=== PATIENT | female | born 1950 | race Caucasian/White ===

== ENCOUNTER → 2019-06-09 | Outpatient (CLI) | payer OTHER ==
[~2019-06-09] MED LIST: ASPIRIN325; MAALOX MAXIMUM355 ML PO; PEPCID AC20 M1 PO; PHENERGAN 25 MG25 MG PO; REGLAN 5 MG TAB5 M1 PO; SIMVASTATIN40 MG PO; TOPROL XL25 MG PO; ZESTRIL5 MG PO
== END ==
LOC: SJCVC 10:22
DX: I25.10 Atherosclerotic heart disease of native coronary artery without angina pectoris (principal); I10 Essential (primary) hypertension; I65.23 Occlusion and stenosis of bilateral carotid arteries; E78.5 Hyperlipidemia, unspecified; E11.9 Type 2 diabetes mellitus without complications; J44.9 Chronic obstructive pulmonary disease, unspecified; K21.9 Gastro-esophageal reflux disease without esophagitis; Z79.82 Long term (current) use of aspirin; Z79.84 Long term (current) use of oral hypoglycemic drugs; F17.210 Nicotine dependence, cigarettes, uncomplicated

== ENCOUNTER → 2019-06-24 | Outpatient (CLI) | payer OTHER ==
[~2019-06-24] MED LIST changes: +ALBUTEROL2.5 MG/31 INH; +AUGMENTIN 875-1 EACH PO; +AZELASTINE137 MCG/0. NS; +CALCIUM 500+D1 EAC2 PO; +CHANTIX1 EACH PO; +DOXYCYCLINE 10100 M2 PO; +LOMOTIL TABLET1 EACH PO; +METFORMIN HCL500 MG PO; +ONDANSETRON ODT8 MG PO; +PANTOPRAZOLE SO40 M1 PO; +PREDNISONE 20 M20 MG PO; +XARELTO20 MG PO
== END ==
LOC: SJCVC 11:51
DX: I25.10 Atherosclerotic heart disease of native coronary artery without angina pectoris (principal); Z79.899 Other long term (current) drug therapy

== ENCOUNTER 2019-07-02 14:55 | Emergency (ER) | payer OTHER ==
[~2019-07-02] VITALS: Ht 162.6 cm; Wt 103.9 kg
[~2019-07-02 14:55] MED LIST changes: -ALBUTEROL2.5 MG/31 INH; -AUGMENTIN 875-1 EACH PO; -AZELASTINE137 MCG/0. NS; -CALCIUM 500+D1 EAC2 PO; -CHANTIX1 EACH PO; -DOXYCYCLINE 10100 M2 PO; -LOMOTIL TABLET1 EACH PO; -METFORMIN HCL500 MG PO; -ONDANSETRON ODT8 MG PO; -PANTOPRAZOLE SO40 M1 PO; -PREDNISONE 20 M20 MG PO; -XARELTO20 MG PO
[2019-07-02] MEDS ORDERED: XARELTO20 MG PO (15:04)
[2019-07-02] MEDS ORDERED: AUGMENTIN 875-1 EACH PO (15:04)
[2019-07-02] MEDS ORDERED: CHANTIX1 EACH PO (15:05)
[2019-07-02] MEDS ORDERED: METFORMIN HCL500 MG PO (15:05)
[2019-07-02 15:44] LABS: ABSOLUTE NEUTROPHILS 13.6 thou/uL (1.4-8.2); BASOPHILS 0.4 % (0.0-2.0); EOSINOPHILS 0.7 % (0.0-3.0); HEMATOCRIT 44.8 % (37.0-47.0); HEMOGLOBIN 14.1 gm/dL (12.0-15.0); LYMPHOCYTES 4.1 % (24.0-44.0); MCH 25.1 pg (26.0-34.0); MCHC 31.6 g/dL (28.0-37.0); MCV 79.5 fL (80.0-100.0); MONOCYTES 3.8 % (1.0-8.0); PLATELET COUNT 302 thou/uL (150-400); RBC 5.63 mil/uL (4.20-5.00); RDW 15.1 % (10.5-14.5)
[2019-07-02] MEDS ORDERED: LOMOTIL TABLET1 EACH PO (15:59)
[2019-07-02] MEDS ORDERED: DOXYCYCLINE 10100 M2 PO (16:01)
[2019-07-02] MEDS ORDERED: CALCIUM 500+D1 EAC2 PO (16:03)
[2019-07-02] MEDS ORDERED: PANTOPRAZOLE SO40 M1 PO (16:04)
[2019-07-02 16:06] LABS: ANION GAP 9 mmol/L (7-16); BUN 24 mg/dL (7-18); CALCIUM 9.5 mg/dL (8.5-10.1); CHLORIDE 98 mmol/L (98-107); CO2 27 mmol/L (21-32); GLUCOSE 134 mg/dL (74-106); POTASSIUM 4.6 mmol/L (3.5-5.1); SODIUM 134 mmol/L (136-145)
[2019-07-02 16:09] LABS: APTT 28.8 Seconds (24.5-32.8); INR 1.1; PROTIME 11.2 Seconds (9.3-11.4)
[2019-07-02 16:18] LABS: ALBUMIN 3.8 g/dL (3.4-5.0); LIPASE 64 U/L (73-393); SGOT 19 U/L (15-37); SGPT 26 U/L (30-65); TOTAL BILIRUBIN 0.4 mg/dL (<0.1-1.0); TOTAL PROTEIN 7.6 g/dL (6.4-8.2); TROPONIN-I <0.06 ng/mL (<0.06)
[2019-07-02 16:39] LABS: URINE BILIRUBIN NEGATIVE (Negative); URINE BLOOD 1+ (Negative); URINE CLARITY CLEAR; URINE COLOR YELLOW; URINE GLUCOSE-RANDOM* NEGATIVE (Negative); URINE KETONES NEGATIVE (Negative); URINE LEUKOCYTES-REFLEX NEGATIVE (Negative); URINE NITRITE-REFLEX NEGATIVE (Negative); URINE PROTEIN (DIPSTICK) NEGATIVE (Negative); URINE SPECIFIC GRAVITY >= 1.030 (1.005-1.035); URINE UROBILINOGEN 0.2 E.U./dl (0.2-1.0)
[2019-07-02 16:53] LABS: CASTS None Seen /LPF (None Seen); MUCUS 4-6 Moderate strn/LPF (None Seen); SQUAMOUS >10 Many /LPF (0-3)
[2019-07-02 16:54] LABS: BACTERIA-REFLEX None Seen /HPF (None Seen); CRYSTALS None Seen /LPF (None Seen); URINE RBC 3-10 Few /HPF (0-2); URINE WBC-REFLEX 0-5 Rare /HPF (0-5)
[2019-07-02] MEDS ORDERED: AZELASTINE137 MCG/0. NS (17:35)
[2019-07-02] MEDS ORDERED: ONDANSETRON ODT8 MG PO (17:45)
[2019-07-02] MEDS ORDERED: PREDNISONE 20 M20 MG PO (17:45)
[2019-07-02] MEDS ORDERED: ALBUTEROL2.5 MG/31 INH (17:55)
[2019-07-02 18:10] VITALS: BP 126/73
--- NOTE | 2019-07-05 08:05 | EKG ---
[facility] [place] [address] ELECTROCARDIOGRAM REPORT Name: ZHANE THOMAS Room #: DEP [facility]#: [id number] Admission: 07/02/19 Attend Phys: Discharge: 07/02/19 Date of : 48 Report #: [id number] THIS REPORT FOR: cc: Ej Lopez MD, Christopher B. 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: : 1950 Requested By: Kris Emanuel Order Number: [id number] MD: Rohan Ackerman Measurements Intervals [place] Rate: 111 P: 72 ME: 141 QRS: 45 QRSD: 90 T: -7 QT: 323 QTc: 439 Interpretive Statements Sinus tachycardia Otherwise normal tracing Compared to ECG 07/05/2010 23:31:36 Ventricular premature complex(es) no longer present Electronically Signed On 07-05-2019 8:04:22 CDT by Rohan Ackerman [email or web address] <ELECTRONICALLY SIGNED> By: Rohan Ackerman MD, [facility] 07/05/19 0804 1529 1529 Rohan Ackerman MD, [facility] /EPI
== END 2019-07-02 18:10 | disposition home or self-care (01) ==
LOC: ER 14:55
PROVIDERS: Emergency Medicine
DX: J44.1 Chronic obstructive pulmonary disease with (acute) exacerbation (principal); K58.9 Irritable bowel syndrome, unspecified; R11.2 Nausea with vomiting, unspecified; R19.7 Diarrhea, unspecified; F17.210 Nicotine dependence, cigarettes, uncomplicated; Z79.899 Other long term (current) drug therapy

== ENCOUNTER → 2019-09-28 | Outpatient (CLI) | payer OTHER ==
[~2019-09-28] MED LIST changes: +ALBUTEROL2.5 MG/31 INH; +AUGMENTIN 875-1 EACH PO; +AZELASTINE137 MCG/0. NS; +CALCIUM 500+D1 EAC2 PO; +CHANTIX1 EACH PO; +DOXYCYCLINE 10100 M2 PO; +LOMOTIL TABLET1 EACH PO; +METFORMIN HCL500 MG PO; +ONDANSETRON ODT8 MG PO; +PANTOPRAZOLE SO40 M1 PO; +PREDNISONE 20 M20 MG PO; +XARELTO20 MG PO
== END ==
LOC: SJCVCIMAG 08:08
PROVIDERS: ATTEND Internal Medicine
DX: I11.9 Hypertensive heart disease without heart failure (principal); I07.1 Rheumatic tricuspid insufficiency; I48.91 Unspecified atrial fibrillation; E78.5 Hyperlipidemia, unspecified; E11.9 Type 2 diabetes mellitus without complications; I25.10 Atherosclerotic heart disease of native coronary artery without angina pectoris; I25.2 Old myocardial infarction; I65.23 Occlusion and stenosis of bilateral carotid arteries; K21.9 Gastro-esophageal reflux disease without esophagitis; J44.9 Chronic obstructive pulmonary disease, unspecified; F17.210 Nicotine dependence, cigarettes, uncomplicated; Z79.01 Long term (current) use of anticoagulants; Z79.82 Long term (current) use of aspirin; Z79.899 Other long term (current) drug therapy; Z98.61 Coronary angioplasty status; Z79.84 Long term (current) use of oral hypoglycemic drugs

== ENCOUNTER → 2019-09-30 | Outpatient (CLI) | payer OTHER | LOC: SJCVCIMAG 09:47 | PROVIDERS: ATTEND Internal Medicine | DX: I73.9 Peripheral vascular disease, unspecified (principal) ==

== ENCOUNTER → 2020-06-01 | Outpatient (CLI) | payer OTHER | LOC: SJCVC 13:52 | PROVIDERS: ATTEND Internal Medicine | DX: I25.10 Atherosclerotic heart disease of native coronary artery without angina pectoris (principal); I49.9 Cardiac arrhythmia, unspecified; I10 Essential (primary) hypertension; I65.23 Occlusion and stenosis of bilateral carotid arteries; E78.5 Hyperlipidemia, unspecified; E11.9 Type 2 diabetes mellitus without complications; E78.00 Pure hypercholesterolemia, unspecified; I48.0 Paroxysmal atrial fibrillation; J44.9 Chronic obstructive pulmonary disease, unspecified; K21.9 Gastro-esophageal reflux disease without esophagitis; I25.2 Old myocardial infarction; F17.210 Nicotine dependence, cigarettes, uncomplicated; Z98.890 Other specified postprocedural states; Z95.5 Presence of coronary angioplasty implant and graft; Z72.89 Other problems related to lifestyle; Z79.899 Other long term (current) drug therapy; Z82.49 Family history of ischemic heart disease and other diseases of the circulatory system ==

== ENCOUNTER → 2020-06-21 | Outpatient (CLI) | payer OTHER | LOC: CAT 10:04 | PROVIDERS: ATTEND Internal Medicine | DX: Z12.2 Encounter for screening for malignant neoplasm of respiratory organs (principal); R91.1 Solitary pulmonary nodule; R91.8 Other nonspecific abnormal finding of lung field; Z87.891 Personal history of nicotine dependence; I25.10 Atherosclerotic heart disease of native coronary artery without angina pectoris; R59.0 Localized enlarged lymph nodes; J84.10 Pulmonary fibrosis, unspecified; M25.78 Osteophyte, vertebrae ==

== ENCOUNTER → 2020-07-13 | Outpatient (CLI) | payer OTHER ==
[~2020-07-13] MED LIST changes: +ALBUTEROL0.63 MG/3 INH; +CARTIA XT240 M1 PO; +LISINOPRIL5 MG PO; +LOPRESSOR50 MG PO; +MUCINEX600 MG PO; +PRESERVISION A1 EAC2 PO; +SYMBICORT160 MCG/4. INH; +VENTOLIN HFA 1818 GM INH; +VITAMIN B-122500 MCG PO; +VITAMIN D21250 MC1 PO; +ZOLPIDEM TARTRA10 MG PO
== END ==
LOC: LAB 08:33
PROVIDERS: ATTEND Pediatrics
DX: Z01.812 Encounter for preprocedural laboratory examination (principal); Z20.822 Contact with and (suspected) exposure to COVID-19

== ENCOUNTER → 2020-07-14 | Outpatient (CLI) | payer OTHER | LOC: CAT 09:43 | PROVIDERS: ATTEND Internal Medicine | DX: J32.1 Chronic frontal sinusitis (principal); I25.10 Atherosclerotic heart disease of native coronary artery without angina pectoris; R91.8 Other nonspecific abnormal finding of lung field ==

== ENCOUNTER 2020-07-18 06:02 | Outpatient (CLI) | payer OTHER ==
[~2020-07-18] VITALS: Ht 162.6 cm; Wt 107.0 kg
[2020-07-18 07:04] VITALS: BP 104/59
--- NOTE | 2020-07-20 17:07 | PATH ---
[facility] [address] [place] [address] PATHOLOGY RPT PROCEDURE Name: ZHANE THOMAS Room #: DEP T[facility] M.R.#: [id number] Admission: 07/18/20 Date of : 48 Discharge: 07/18/20 Report #: [id number] Path Case #: [id number] Note [facility] Accession Number: [id number] TESTS RESULT FLAG UNITS REF RANGE LAB Clinician Provided Cytology Information No. of containers..01 Other (Miscellaneous) Source: [A] 01 CHENG [place] DIAGNOSIS: [A] 02 [place]ENG [place] SUSPICIOUS FOR MALIGNANCY. RED BLOOD CELLS ARE PRESENT. MARKEDLY ATYPICAL SQUAMOUS EPITHELIAL CELLS. REACTIVE BRONCHIAL EPITHELIAL CELLS PRESENT. Pathologist ICD10: 02 C34.91 Signed out by: 02 Sally Brooks MD, Pathologist NPI- [id number] Performed by: Bishnu Waller, Biophysics Teacher ([facility]) Gross description: 01 20ML, COLORLESS, 2TP /LCS 07/19/2020 0319 Local FLAG LEGEND: L-Low Normal,H-High Normal,LL-Alert Low,HH-Alert High <-Panic Low,>-Panic High,A-Abnormal,AA-Critical Abnormal Performed at: [address] [place] [address] Denis Toscano MD, [address] [address] Sally Brooks MD, Specimen Comment: A courtesy copy of this report has been sent to [phone] Specimen Comment: [phone] Specimen Comment: Report sent to DR FITCH / DR VASQUEZ Specimen Comment: A duplicate report has been generated due to demographic updates. Performed at: [address], [place], [place] [id number] [address] [address] PATHOLOGY RPT PROCEDURE Name: ZHANE THOMAS Room #: DEP [facility]#: [id number] Admission: 07/18/20 Date of : 48 Discharge: 07/18/20 Report #: [id number] Path Case #: [id number] MD Denis Toscano MD Phone: [phone]
--- NOTE | 2020-07-20 17:07 | PATH ---
[facility] [place] [address] [place] [address] PATHOLOGY RPT PROCEDURE Name: ZHANE THOMAS Room #: DEP [facility].R.#: [id number] Admission: 07/18/20 Date of : 48 Discharge: 07/18/20 Report #: [id number] Path Case #: [id number] Note [facility] Accession Number: [id number] TESTS RESULT FLAG UNITS REF RANGE LAB Clinician Provided Cytology Information No. of containers..01 Other (Miscellaneous) Source: [A] 01 CHENG FNA LUNG MASS DIAGNOSIS: [A] 02 CHENG FNA LUNG MASS POSITIVE FOR MALIGNANT CELLS. SQUAMOUS CELL CARCINOMA IS PRESENT. THIS INTERPRETATION INCLUDES EVALUATION OF A CELL BLOCK. Comment: This case was coreviewed by Dr. Maylin Xie who concurs with my diagnosis. Findings of this case are discussed with Dr. Fitch at 3:03 pm on 07/19/20. Pathologist ICD10: 02 C34.91 Signed out by: Kristian Brooks MD, Pathologist NPI- [id number] Performed by: Bishnu Waller, Air Intelligence Officer ([facility]) Gross description: 01 20ML, BROWN, 1CB /LCS 07/19/2020 0324 Local FLAG LEGEND: L-Low Normal,H-High Normal,LL-Alert Low,HH-Alert High <-Panic Low,>-Panic High,A-Abnormal,AA-Critical Abnormal Performed at: 01 [facility] [address] [facility] [address] [place] [address] Denis Toscano MD, [address] [address] Sally Brooks MD, Specimen Comment: A courtesy copy of this report has been sent to [phone] Specimen Comment: [phone] Specimen Comment: Report sent to DR FITCH / DR VASQUEZ Specimen Comment: A duplicate report has been generated due to demographic updates. [address] [address] PATHOLOGY RPT PROCEDURE Name: ZHANE THOMAS Room #: JEREMY Braxton#: [id number] Admission: 07/18/20 Date of : [birth year] Discharge: 07/18/20 Report #: [id number] Path Case #: [id number] Performed at: 01 [facility] [place] [address] [facility] [address], [place], [place] [id number] MD Denis Toscano MD Phone: [phone]
--- NOTE | 2020-07-20 17:07 | PATH ---
[facility] [place] [address] PATHOLOGY RPT PROCEDURE Name: ZHANE THOMAS Room #: DEP [facility] M.R.#: [id number] Admission: 07/18/20 Date of : 48 Discharge: 07/18/20 Report #: [id number] Path Case #: [id number] Note [facility] Accession Number: [id number] TESTS RESULT FLAG UNITS REF RANGE LAB Clinician Provided Cytology Information No. of containers..01 Other (Miscellaneous) Source: [A] 01 CHENG FNA LUNG MASS DIAGNOSIS: [A] 02 CHENG FNA LUNG MASS POSITIVE FOR MALIGNANT CELLS. SQUAMOUS CELL CARCINOMA IS PRESENT. THIS INTERPRETATION INCLUDES EVALUATION OF A CELL BLOCK. Comment: This case was coreviewed by Dr. Maylin Xie who concurs with my diagnosis. Findings of this case are discussed with Dr. Fitch at 3:03 pm on 07/19/20. Pathologist ICD10: 02 C34.91 Signed out by: Kristian Brooks MD, Pathologist NPI- [id number] Performed by: Bishnu Waller, Machine Stoppage Frequency Checker ([facility]) Gross description: 01 20ML, BROWN, 1CB /LCS 07/19/2020 0321 Local FLAG LEGEND: L-Low Normal,H-High Normal,LL-Alert Low,HH-Alert High <-Panic Low,>-Panic High,A-Abnormal,AA-Critical Abnormal Performed at: 01 [facility] [address] [place] [address] Denis Toscano MD, [address] [address] Sally Brooks MD, Specimen Comment: A courtesy copy of this report has been sent to [phone] Specimen Comment: [phone] Specimen Comment: Report sent to DR FITCH / DR VASQUEZ Specimen Comment: A duplicate report has been generated due to demographic updates. [address] [address] PATHOLOGY RPT PROCEDURE Name: ZHANE THOMAS Room #: JEREMY Braxton#: [id number] Admission: 07/18/20 Date of : 48 Discharge: 07/18/20 Report #: [id number] Path Case #: [id number] [facility]formed at: 01 [facility] [place] [address] [facility] [address] [facility] [address], [place], [place] [id number] MD Denis Toscano MD Phone: [phone]
== END 2020-07-18 10:50 | disposition home or self-care (01) ==
LOC: PUL 06:02 → TBA 06:03 → PUL 08:34
PROVIDERS: ATTEND Pediatrics
DX: C34.91 Malignant neoplasm of unspecified part of right bronchus or lung (principal); I10 Essential (primary) hypertension; E11.9 Type 2 diabetes mellitus without complications; E78.00 Pure hypercholesterolemia, unspecified; J43.9 Emphysema, unspecified; I48.91 Unspecified atrial fibrillation; I25.2 Old myocardial infarction; K21.9 Gastro-esophageal reflux disease without esophagitis; F17.210 Nicotine dependence, cigarettes, uncomplicated; Z98.890 Other specified postprocedural states; Z79.899 Other long term (current) drug therapy; Z98.41 Cataract extraction status, right eye; Z98.42 Cataract extraction status, left eye; Z79.01 Long term (current) use of anticoagulants
CPT/HCPCS: 50010; 62110; 62900

== ENCOUNTER → 2020-11-30 | Outpatient (CLI) | payer OTHER | LOC: SJCVC 10:19 | PROVIDERS: ATTEND Internal Medicine | DX: I25.10 Atherosclerotic heart disease of native coronary artery without angina pectoris (principal); I10 Essential (primary) hypertension; I48.0 Paroxysmal atrial fibrillation; I65.23 Occlusion and stenosis of bilateral carotid arteries; E78.5 Hyperlipidemia, unspecified; D49.1 Neoplasm of unspecified behavior of respiratory system; E11.9 Type 2 diabetes mellitus without complications; J44.9 Chronic obstructive pulmonary disease, unspecified; K21.9 Gastro-esophageal reflux disease without esophagitis; I25.2 Old myocardial infarction; F17.210 Nicotine dependence, cigarettes, uncomplicated; Z79.899 Other long term (current) drug therapy; Z82.49 Family history of ischemic heart disease and other diseases of the circulatory system ==

== ENCOUNTER → 2021-04-12 | Outpatient (CLI) | payer OTHER | LOC: CAT 10:17 | PROVIDERS: ATTEND Nurse Practitioner | DX: K76.0 Fatty (change of) liver, not elsewhere classified (principal); R10.84 Generalized abdominal pain; K92.1 Melena; R11.0 Nausea; Z85.118 Personal history of other malignant neoplasm of bronchus and lung; N28.89 Other specified disorders of kidney and ureter ==

== ENCOUNTER → 2021-06-06 | Outpatient (CLI) | payer OTHER | LOC: SJCVC 13:59 | PROVIDERS: ATTEND Internal Medicine | DX: R94.31 Abnormal electrocardiogram [ECG] [EKG] (principal); I25.10 Atherosclerotic heart disease of native coronary artery without angina pectoris; I10 Essential (primary) hypertension; I48.0 Paroxysmal atrial fibrillation; I65.23 Occlusion and stenosis of bilateral carotid arteries; E78.5 Hyperlipidemia, unspecified; D49.1 Neoplasm of unspecified behavior of respiratory system; E11.9 Type 2 diabetes mellitus without complications; K21.9 Gastro-esophageal reflux disease without esophagitis; J44.9 Chronic obstructive pulmonary disease, unspecified; Z82.49 Family history of ischemic heart disease and other diseases of the circulatory system; F17.210 Nicotine dependence, cigarettes, uncomplicated; Z72.89 Other problems related to lifestyle; Z79.899 Other long term (current) drug therapy ==